=== PATIENT | male | born 1985 | race Hispanic/Latino ===

== ENCOUNTER 2018-06-04 23:33 | Emergency (ER) | payer MEDICAID | END 2018-06-05 00:15 | disposition home or self-care (01) | LOC: EDH 23:33 | DX: Z01.30 Encounter for examination of blood pressure without abnormal findings (principal); R42 Dizziness and giddiness; Z79.899 Other long term (current) drug therapy | CPT/HCPCS: 99281 ==

== ENCOUNTER 2021-12-23 23:21 | Emergency (ER) | payer MEDICAID ==
[~2021-12-23] VITALS: Ht 162.6 cm; Wt 64.4 kg
[2021-12-24] MEDS ORDERED: ACETAMINOPHEN WITH CODEINE 1 TAB TAB PO ONE
[2021-12-24] MEDS ORDERED: IBUPROFEN 600 MG TABLET PO ONE
[2021-12-24] MEDS ORDERED: IBUPROFEN 600 MG TABLET ONE (00:08)
[2021-12-24] MEDS ORDERED: ACETAMINOPHEN WITH CODEINE 1 TAB TAB ONE (00:08)
[2021-12-24] MEDS ORDERED: ACET-2079 PO (00:27)
[2021-12-24] MEDS ORDERED: IBUP-2070 PO (00:27)
[2021-12-24 00:41] VITALS: BP 112/77
== END 2021-12-24 00:42 | disposition home or self-care (01) ==
LOC: EDH 23:21
DX: S67.190A Crushing injury of right index finger, initial encounter (principal); Z79.1 Long term (current) use of non-steroidal anti-inflammatories (NSAID); Z88.5 Allergy status to narcotic agent; Z90.49 Acquired absence of other specified parts of digestive tract; W23.0XXA Caught, crushed, jammed, or pinched between moving objects, initial encounter; Y93.89 Activity, other specified; Y92.89 Other specified places as the place of occurrence of the external cause; Y99.8 Other external cause status
CPT/HCPCS: 73140

== ENCOUNTER 2022-11-16 17:31 | Emergency (ER) | payer MEDICAID ==
[~2022-11-16] VITALS: Ht 162.6 cm; Wt 54.4 kg
[~2022-11-16 17:31] MED LIST: ACET-2079 PO; IBUP-2070 PO
[2022-11-16] MEDS ORDERED: IOHEXOL-350 50ML VIAL IV ONE (17:59)
[2022-11-16 18:05] LABS: BASOPHILS % (AUTO) 0.3 % (0.0-5.0); EOSINOPHILS % (AUTO) 0.1 % (0.0-8.0); HEMATOCRIT 45.4 % (42-54); LYMPHOCYTES % (AUTO) 6.5 % (21.0-51.0); MEAN CORPUSCULAR HEMOGLOBIN 31.4 pg (27.0-33.0); MEAN CORPUSCULAR HGB CONC 33.9 g/dL (32.0-36.0); MEAN CORPUSCULAR VOLUME 92.5 fL (79-99); MONOCYTES % (AUTO) 8.4 % (3.0-13.0); NEUTROPHILS % (AUTO) 84.2 % (40.0-77.0); PLATELET COUNT (AUTO) 344 K/uL (130-400); RED BLOOD CELL COUNT(AUTO) 4.91 MIL/uL (4.50-6.20); RED CELL DISTRIBUTION WIDTH 12.3 % (11.0-15.5); WHITE BLOOD COUNT (AUTO) 15.8 K/uL (4.8-10.8)
[2022-11-16 18:13] LABS: CARBON DIOXIDE 25 mmol/L (21-32); CHLORIDE 105 mmol/L (101-111); CREATININE 1.2 mg/dL (0.5-1.5); GLOMERULAR FILTR. RATE CALC 73 mL/min (>60); GLUCOSE,RANDOM 73 mg/dL (70-105); POTASSIUM 3.9 mmol/L (3.5-5.1); SODIUM SERUM 140 mmol/L (136-145); UREA NITROGEN, BLOOD 8 mg/dL (7-18)
[2022-11-16 18:15] LABS: INR 0.93 (0.85-1.15)
[2022-11-16 18:18] LABS: ACETAMINOPHEN < 1 mcg/mL (10-29); ALANINE AMINOTRANSFERASE 26 U/L (12-78); ALCOHOL, BLOOD < 3 mg/dL (0-10); ASPARTATE AMINOTRANSFERASE 19 U/L (10-37); CREATINE KINASE, TOTAL 201 U/L (21-232); PLATELET MORPHOLOGY PLT CLUMPS PRESENT; SALICYLATE 6.5 mg/dL (2.8-20.0); TOTAL PROTEIN, SERUM 7.7 g/dL (6.0-8.3)
[2022-11-16 20:31] LABS: AMPHET/METH SCREEN,URINE NEGATIVE (NEGATIVE); BARBITURATE SCREEN, URINE NEGATIVE (NEGATIVE); BENZODIAZEPINES SCREEN,URINE NEGATIVE (NEGATIVE); CANNABINOID SCREEN,URINE POSITIVE (NEGATIVE); COCAINE SCREEN,URINE NEGATIVE (NEGATIVE); OPIATE SCREEN,URINE NEGATIVE (NEGATIVE); PHENCYCLIDINE SCREEN,URINE NEGATIVE (NEGATIVE)
[2022-11-17] MEDS ORDERED: ACETAMINOPHEN 500 MG TABLET PO ONE
[2022-11-17 00:17] VITALS: BP 131/74
== END 2022-11-17 09:01 ==
LOC: EDH 17:31
DX: R45.851 Suicidal ideations (principal); F41.9 Anxiety disorder, unspecified; F31.9 Bipolar disorder, unspecified; F20.9 Schizophrenia, unspecified; Z79.1 Long term (current) use of non-steroidal anti-inflammatories (NSAID); Z88.8 Allergy status to other drugs, medicaments and biological substances; Z90.49 Acquired absence of other specified parts of digestive tract
CPT/HCPCS: 99285; 70450; 71045; 82550; 80053; 80305; 85025; 85610; 36415; 73522; 72125; 71260; 74177; G0481; Q9967

== ENCOUNTER 2023-06-01 15:05 | Emergency (ER) | payer MEDICAID ==
[~2023-06-01] VITALS: Ht 162.6 cm; Wt 63.5 kg
[2023-06-01 15:11] VITALS: BP 125/66; PULSE 81; RESP 16; O2SAT 98
[2023-06-01] MEDS ORDERED: 0.9%NACL 1000ML 1,000 ML IV ONE ×2 (15:30→16:00)
[2023-06-01] MEDS ORDERED: KETOROLAC 30MG VIAL (30MG/ML) IVP ONE (15:30)
[2023-06-01] MEDS ORDERED: ONDANSETRON 4MG INJ IVP ONE (15:30)
[2023-06-01] MEDS ORDERED: PANTOPRAZOLE 40 MG/VIAL IVP STA (15:31)
[2023-06-01 15:34] LABS: BASOPHILS # (AUTO) 0.03 K/uL (0.00-0.20); BASOPHILS % (AUTO) 0.3 % (0.0-5.0); EOSINOPHILS # (AUTO) 0.13 K/uL (0.00-0.70); EOSINOPHILS % (AUTO) 1.5 % (0.0-8.0); HEMATOCRIT 44.1 % (42-54); IMMATURE GRANULOCYTE ABSOLUTE 0.02 K/uL (0-1); LYMPHOCYTES # (AUTO) 2.1 K/uL (1.0-4.8); LYMPHOCYTES % (AUTO) 23.8 % (21.0-51.0); MEAN CORPUSCULAR HEMOGLOBIN 31.5 pg (27.0-33.0); MEAN CORPUSCULAR HGB CONC 34.5 g/dL (32.0-36.0); MEAN CORPUSCULAR VOLUME 91.3 fL (79-99); MONOCYTES # (AUTO) 0.9 K/uL (0.1-1.0); MONOCYTES % (AUTO) 10.8 % (3.0-13.0); NEUTROPHILS # (AUTO) 5.5 K/uL (1.8-7.7); NEUTROPHILS % (AUTO) 63.4 % (40.0-77.0); PLATELET COUNT (AUTO) 327 K/uL (130-400); RED BLOOD CELL COUNT(AUTO) 4.83 MIL/uL (4.50-6.20); RED CELL DISTRIBUTION WIDTH 12.3 % (11.0-15.5); WHITE BLOOD COUNT (AUTO) 8.7 K/uL (4.8-10.8)
[2023-06-01 15:44] LABS: CREATININE 0.8 mg/dL (0.5-1.5); POTASSIUM 3.2 mmol/L (3.5-5.1)
[2023-06-01 15:48] LABS: ALBUMIN 3.6 g/dL (3.5-5.0); BILIRUBIN,TOTAL 0.2 mg/dL (0.2-1.0); TOTAL PROTEIN, SERUM 7.2 g/dL (6.0-8.3)
[2023-06-01 16:33] LABS: APPEARANCE,URINE CLEAR (CLEAR); BILIRUBIN,URINE NEGATIVE (NEGATIVE); COLOR,URINE YELLOW (YELLOW); GLUCOSE, URINE (UA) NEGATIVE (NEGATIVE); KETONES,URINE NEGATIVE (NEGATIVE); LEUKOCYTE ESTERASE ,URINE NEGATIVE Leu/uL (NEGATIVE); NITRATE,URINE NEGATIVE (NEGATIVE); OCCULT BLOOD,URINE NEGATIVE (NEGATIVE); PH,URINE 6.5 (5.0-8.0); PROTEIN,URINE 20 mg/dL (NEGATIVE)
[2023-06-01 16:36] LABS: ADD UA MICROSCOPIC YES
[2023-06-01 16:37] LABS: BACTERIA,URINE RARE /HPF (None Seen); MUCUS,URINE FEW LPF (None Seen); RBC,URINE 0-1 /HPF (0-1); SQUAMOUS EPITHELIAL CELL,UR RARE /HPF (0-2)
[2023-06-01 16:39] LABS: AMPHET/METH SCREEN,URINE NEGATIVE (NEGATIVE); BARBITURATE SCREEN, URINE NEGATIVE (NEGATIVE); BENZODIAZEPINES SCREEN,URINE NEGATIVE (NEGATIVE); CANNABINOID SCREEN,URINE POSITIVE (NEGATIVE); COCAINE SCREEN,URINE NEGATIVE (NEGATIVE); OPIATE SCREEN,URINE NEGATIVE (NEGATIVE); PHENCYCLIDINE SCREEN,URINE NEGATIVE (NEGATIVE)
[2023-06-01] MEDS ORDERED: POTASSIUM BICARB/CIT AC 25 MEQ TABLET.EFF PO ONE (17:00)
[2023-06-01] MEDS ORDERED: PANT40TA55 PO (17:18)
[2023-06-01] MEDS ORDERED: LIDOCAINE HCL 2% VISCOUS 15 ML UDCUP PO ONE (17:30)
[2023-06-01] MEDS ORDERED: MAG/ALUM/SIMETH 30 ML UDCUP PO ONE (17:30)
== END 2023-06-01 18:22 | disposition home or self-care (01) ==
LOC: EDH 15:05
DX: F12.10 Cannabis abuse, uncomplicated (principal); E87.6 Hypokalemia; K29.70 Gastritis, unspecified, without bleeding; F41.9 Anxiety disorder, unspecified; F20.9 Schizophrenia, unspecified; F31.9 Bipolar disorder, unspecified; Z88.5 Allergy status to narcotic agent; Z90.49 Acquired absence of other specified parts of digestive tract
CPT/HCPCS: 99284; 96374; 96361; 96375; 80053; 80305; 83690; 85025; 81001; 36415; J7030; J2405; J1885; S0164; C9113

== ENCOUNTER → 2023-07-05 | Emergency (ER) | payer MEDICAID ==
[~2023-07-05] VITALS: Ht 162.6 cm; Wt 65.8 kg
[~2023-07-05] MED LIST changes: +PANT40TA55 PO
[2023-07-05 17:20] LABS: BASOPHILS # (AUTO) 0.05 K/uL (0.00-0.20); BASOPHILS % (AUTO) 0.4 % (0.0-5.0); EOSINOPHILS # (AUTO) 0.01 K/uL (0.00-0.70); EOSINOPHILS % (AUTO) 0.1 % (0.0-8.0); HEMATOCRIT 43.7 % (42-54); IMMATURE GRANULOCYTE ABSOLUTE 0.05 K/uL (0-1); LYMPHOCYTES # (AUTO) 1.3 K/uL (1.0-4.8); LYMPHOCYTES % (AUTO) 9.9 % (21.0-51.0); MEAN CORPUSCULAR HEMOGLOBIN 31.5 pg (27.0-33.0); MEAN CORPUSCULAR HGB CONC 34.8 g/dL (32.0-36.0); MEAN CORPUSCULAR VOLUME 90.7 fL (79-99); MONOCYTES # (AUTO) 0.9 K/uL (0.1-1.0); MONOCYTES % (AUTO) 6.7 % (3.0-13.0); NEUTROPHILS % (AUTO) 82.5 % (40.0-77.0); PLATELET COUNT (AUTO) 346 K/uL (130-400); RED BLOOD CELL COUNT(AUTO) 4.82 MIL/uL (4.50-6.20); RED CELL DISTRIBUTION WIDTH 12.2 % (11.0-15.5); WHITE BLOOD COUNT (AUTO) 13.3 K/uL (4.8-10.8)
[2023-07-05 17:44] LABS: ALBUMIN 3.8 g/dL (3.5-5.0); BILIRUBIN,TOTAL 0.3 mg/dL (0.2-1.0); CREATININE 0.9 mg/dL (0.5-1.5); POTASSIUM 3.4 mmol/L (3.5-5.1); TOTAL PROTEIN, SERUM 7.7 g/dL (6.0-8.3)
[2023-07-05 18:36] VITALS: BP 126/73; PULSE 85; RESP 18; O2SAT 99
[2023-07-05 18:46] LABS: APPEARANCE,URINE CLEAR (CLEAR); BILIRUBIN,URINE NEGATIVE (NEGATIVE); COLOR,URINE COLORLESS (YELLOW); GLUCOSE, URINE (UA) NEGATIVE (NEGATIVE); KETONES,URINE NEGATIVE (NEGATIVE); LEUKOCYTE ESTERASE ,URINE NEGATIVE Leu/uL (NEGATIVE); NITRATE,URINE NEGATIVE (NEGATIVE); OCCULT BLOOD,URINE NEGATIVE (NEGATIVE); PH,URINE 6.5 (5.0-8.0); PROTEIN,URINE NEGATIVE (NEGATIVE); UROBILINOGEN,URINE 0.2 mg/dL (0.2-1.0)
[2023-07-05 18:48] LABS: ADD UA MICROSCOPIC NO
== END ==
LOC: EDH 16:29
DX: R10.9 Unspecified abdominal pain (principal); Z53.21 Procedure and treatment not carried out due to patient leaving prior to being seen by health care provider
CPT/HCPCS: 36415; 80053; 81003; 85025; 99281

== ENCOUNTER 2024-08-13 08:39 | Emergency (ER) | payer MEDICAID ==
[~2024-08-13] VITALS: Ht 162.6 cm; Wt 74.4 kg
--- NOTE | 2024-08-13 09:05 | ERN ---
General Chief Complaint: Back Pain-No Injury Stated Complaint: CHRONIC BACK PAIN Time Seen by MD: 08:43 Source: patient History of Present Illness Initial Comments Patient is a 39-year-old male coming in to be evaluated for back pain. Patient states that he was extensive history of back pain and was getting injections in the back for chronic back pain. Patient states he received injection four months but did not resolve this pain. Allergies: Coded Allergies: hydrocodone (Unverified Allergy, Unknown, 12/23/21) Home Meds Active Scripts Pantoprazole Sodium (Protonix) 40 Mg Ectab, 40 MG PO DAILY for 30 Days, #30 TAB.EC Prov:CORY PAULA MD 06/01/23 Ibuprofen (Ibuprofen) 600 Mg Tablet, 600 MG PO Q6H PRN for PAIN, #30 TAB Prov:TROY WRIGHT MD 12/24/21 Acetaminophen with Codeine (Acetaminophen-Cod #3 Tablet) 1 Each Tablet, 1 TAB PO Q6H PRN for severe pain, #15 TAB Prov:TROY WRIGHT MD 12/24/21 Past Medical History Past Medical History: Anxiety, Bipolar, Depression, Schizophrenia Medical History Other: ESOPHAGEAL HERNIA, ACID REFLUX Past Surgical History: Cholecystectomy, Other Surgical History Other: SHOULDER Social History Social History: ETOH ROS Dictation CONSTITUTIONAL: No chills, no fever, no weakness, no diaphoresis, no malaise. HEAD/FACE: No signs of trauma. EENT: No eye pain, no blurred vision, no tearing, no double vision, no ear pain, no ear discharge, no nose pain, no nasal congestion, no throat pain, no throat swelling, no mouth pain. RESPIRATORY: No cough, no orthopnea, no SOB, no stridor, no wheezing. CARDIOVASCULAR: No chest pain, no edema, no palpitations, no syncope. GASTROINTESTINAL/ABDOMINAL: No abdominal pain, no constipation, no diarrhea, no nausea, no vomiting. GENITOURINARY: No abnormal discharge, no dysuria, no frequent urination, no hematuria. No complaints of pain in the genitals. MUSCULOSKELETAL: back pain, no gout, no joint pain, no joint swelling, no muscle pain, no muscle stiffness, no neck pain. INTEGUMENTARY: No change in color, no change in hair/nails, no dryness, no lesion, no lumps, no rash. NEUROLOGICAL/PSYCH: No anxiety, not depressed, no emotional problem, no headache, no numbness, no pre-existing deficit, no history of seizures, no tremors, no weakness. HEMATOLOGIC/LYMPHATIC: Not anemic, no history of blood clots, no apparent bleeding, no bruising, glands not swollen. All Systems Negative, Except as Noted. Physical Exam Physical Exam Dictation VITAL SIGNS: Reviewed. GENERAL APPEARANCE: Alert, oriented x3, no acute distress, obese. HEAD AND FACE: Non-traumatic. EYES: PERRL, pink conjunctivas, eyelid no trauma, anterior chamber clear. EARS: Pinnas intact and no signs of trauma or erythema. Ear canals clear and no discharge. TMs no erythema. NOSE: No discharge, no bleeding. OROPHARYNX: Mouth normal, teeth no caries, tongue pink. Pharynx clear, no erythema. Tonsils no exudates, no abscesses noted. Mucous membrane moist. NECK: Supple, non-tender, no thyromegaly, no masses, no JVD, no bruits. BREAST: Deferred. CHEST: No tenderness, no crepitus, no paradoxical movement, no retractions. LUNGS: Clear, well-ventilated, symmetric, no rales, no wheezing, no rhonchi, no stridor, good breath sounds bilaterally. HEART: Regular rate, regular rhythm, no murmur, no gallops. VASCULAR: No peripheral edema. ABDOMEN: Soft, positive bowel sounds, nondistended, no guarding, nontender, no rebound, no masses no hepatomegaly, no splenomegaly, no Lopez's sign, no hernias. RECTAL: Deferred. GENITAL: Deferred. NEUROLOGICAL: Normal speech, gross motor function intact, gross sensory function intact. MUSCULOSKELETAL: Neck nontender, full range of motion, backfiller, full range of motion. EXTREMITIES: Nontender, full range of motion. SKIN: Color pink, dry, no turgor, no rash, no lacerations, no abrasions, no contusions. LYMPHATICS: Deferred. Results EKG/XRAY/US/CT/MRI X-RAY Comment Lumbar x-ray-NAD chronic changes MDM MDM: Differential diagnosis: Acute on chronic back pain, vertebral fracture Patient is a 39-year-old male coming in to be evaluated for back pain. Patient states he has a extensive history of back pain has visited pain specialist has received injections but states his back is still hurting. X-ray did not disclose acute findings patient received medication for pain I advised him appropriate follow up PCP in 1-2 days to continue managing chronic back pain. ED Course Orders Procedure Category Date Status Time Lumbar Spine 2-3vws RAD 08/13/24 Taken 08:55 Triamcinolone Acet PHA 08/13/24 Complete 40mg/Ml 1ml (Kenalog 09:00 Orphenadrine Citrate PHA 08/13/24 Complete (Norflex) 09:00 Ketorolac PHA 08/13/24 Complete Tromethamine 30mg/Ml 09:00 Current Medications Medications (Trade) Dose Ordered Sig/Herminio Route PRN Reason Start Time Stop Time Status Last Admin Dose Admin Ketorolac Tromethamine (toRADol) 30 mg ONCE ONCE IM 08/13/24 09:00 08/13/24 09:01 DC 08/13/24 09:25 Orphenadrine Citrate (Norflex) 60 mg ONCE ONCE IM 08/13/24 09:00 08/13/24 09:01 DC 08/13/24 09:26 Triamcinolone Acetonide (Kenalog 40) 40 mg ONCE ONCE IM 08/13/24 09:00 08/13/24 09:01 DC 08/13/24 09:25 Vital Signs Date Time Temp Pulse Resp B/P (MAP) Pulse Ox O2 Delivery O2 Flow Rate FiO2 08/13/24 09:18 98.6 66 20 122/84 100 Room Air* 0 21 08/13/24 08:40 98.2 78 16 120/79 99 Room Air 0 DX & DISP Disposition: Discharge Departure Impression: Primary Impression: Acute on chronic back pain Condition: Stable Scripts Lidocaine (Lidocaine Pain Relief) 4 % Adh..patch 1 PATCH TP DAILY for 7 Days, #7 PATCH 0 Refills Prov: CORY PAULA MD 08/13/24 Additional Instructions: FOLLOW-UP WITH PRIMARY CARE PROVIDER IN 1 TO 2 DAYS. TAKE MEDICATIONS DIRECTED HERE IN THE EMERGENCY ROOM. OKAY TO CONTINUE HOME MEDICATIONS UNLESS OTHERWISE DISCUSSED DURING YOUR VISIT IN THE EMERGENCY ROOM TODAY. RETURN TO YOUR NEAREST EMERGENCY ROOM IF SYMPTOMS WORSEN OR IF THERE IS NO IMPROVEMENT. CALL 911 IF YOU NEED IMMEDIATE ASSISTANCE. TAKE TYLENOL WKTQ-ADY-PNIACDR NEEDED AND IF NO CONTRAINDICATIONS ARE PRESENT. INCREASE ORAL HYDRATION. A WOUND CULTURE OR URINE CULTURE WAS ORDERED HERE IN THE EMERGENCY ROOM DEPARTMENT PLEASE FOLLOW-UP WITH PRIMARY CARE PROVIDER AND ADVISE THEM TO GET REPEAT PORTS FROM OUR FACILITY. IF YOU HAD ANY DANI WRAP/SPLINTS THAT WERE APPLIED HERE, PLEASE DO NOT REMOVE THEM UNTIL YOU SEE YOUR PRIMARY CARE OR SPECIALTY. Referrals: Referrals: ALEX SCHULTZ M.D. (PCP) Time of Disposition: 09:38 CORY PAULA MD Aug 13, 2024 09:05
[2024-08-13 09:18] VITALS: BP 122/84; PULSE 66; RESP 20; TEMP 98.6; O2SAT 100
[2024-08-13] MEDS: TRIAMCINOLONE ACETONIDE 40 MG/ML 1ML VIAL IM ONE (09:25)
[2024-08-13] MEDS: ketOROlac 30MG VIAL (30MG/ML) IM ONE (09:25)
[2024-08-13] MEDS: ORPHENADRINE 60MG/2ML IM ONE (09:26)
[2024-08-13] MEDS ORDERED: LIDO1ADH71 TP (09:38)
--- NOTE | 2024-08-13 10:42 | HMCIMG ---
LUMBAR SPINE 2-3VWS HISTORY: Back pain COMPARISON: None FINDINGS: 3 images of lumbar spine were obtained. Disc space narrowing is seen at the L4-5 level. There are mild degenerative changes with lumbar spine spondylosis. There is straightening of normal lordotic curvature which may be related to muscle spasm or positioning. No loss of vertebral height is seen. No fracture or dislocation is seen. Degenerative changes are seen. IMPRESSION: 1. No fracture is seen. DJD.
== END 2024-08-13 09:47 | disposition home or self-care (01) ==
LOC: EDH 08:39
DX: G89.29 Other chronic pain (principal); M54.50 Low back pain, unspecified; F41.9 Anxiety disorder, unspecified; F20.9 Schizophrenia, unspecified; K21.9 Gastro-esophageal reflux disease without esophagitis; F31.9 Bipolar disorder, unspecified; Z79.899 Other long term (current) drug therapy; Z88.5 Allergy status to narcotic agent; Z90.49 Acquired absence of other specified parts of digestive tract
CPT/HCPCS: 99284; 72100; 96372 ×3; J3301; J1885; J2360